=== PATIENT | male | born 1935 | race Caucasian/White ===

== ENCOUNTER 2019-08-12 04:40 | Observation (INO) ==
[2019-08-12] MEDS ORDERED: ONDANSETRON 4 MG/2 ML VIAL IV STA (05:14)
[2019-08-12] MEDS ORDERED: ASPIRIN 325 MG TABLET PO STA (05:14)
[2019-08-12] MEDS ORDERED: NITROGLYCERIN 2% OINT 1 INCH/GM PACK TOP STA (05:14)
[2019-08-12] MEDS ORDERED: MORPHINE 4 MG/1 ML VIAL IV STA (05:14)
[2019-08-12 05:21] LABS: Basophils # 0.1 10*3/uL (0.0-0.2); Basophils % 0.7 % (0.0-0.8); Eosinophils # 0.3 10*3/uL (0.0-0.87); Eosinophils % 4.2 % (0.00-10.9); Hematocrit 35.5 VOL% (42.0-52.0); Hemoglobin 11.6 GM/DL (14.0-18.0); Immature Granulocytes % 0.5 %; Immature Granulocytes Absolute 0.04 #; Lymphocytes # 2.1 10*3/uL (1.4-4.0); Lymphocytes % 26.7 % (21.2-54.2); Mean Corpuscular HGB Conc 32.7 GM/DL (32-36); Mean Corpuscular Volume 102.6 FL (87-102); Mean Platelet Volume 11.9 FL (9.6-12.0); Monocytes % 12.8 % (1.7-12.7); Neutrophils % 55.1 % (38.7-73.9); Platelet Count 243 T/CUMM (130-400); Red Blood Count 3.46 MC/CUMM (3.8-5.5); Red Cell Distribution Width 12.8 % (9.3-17.3); White Blood Count 7.7 T/CUMM (4-12)
[2019-08-12 05:25] LABS: Apearance,Urine CLEAR (Clear); Bacteria,Urine Occasional /HPF (Few); Bilirubin,Urine Negative (Negative); Blood, Urine Negative (Negative); Glucose,Urine (UA) Negative (Negative); Hyaline Casts,Urine 1 /LPF (0-3); Ketones,Urine Negative (Negative); Mucus,Urine Occasional /LPF (Occasional); Nitrite,Urine Negative (Negative); Protein,Urine Negative; RBC,Urine 3 /HPF (0-4); Squamous Epithelial Cell,Urine Occasional /HPF (0-10); Urine Color Straw (Yellow); Urine Specific Gravity 1.008 (1.001-1.035); Urine Urobilinogen < 2.0 EU/DL (0.2-1.0); WBC,Urine <1 /HPF (0-6)
[2019-08-12 05:49] LABS: INR 1.9
[2019-08-12 05:58] LABS: Albumin 3.1 G/DL (3.4-5.0); Bilirubin,Total 0.4 MG/DL (0.2-1.0); Calcium 8.4 MG/DL (8.5-10.1); Osmolality,Calculated 277.7 MOS/KG (273-304); Total Protein 6.5 G/DL (6.4-8.3)
[2019-08-12] MEDS ORDERED: MORPHINE 4 MG/1 ML VIAL IV PRN (06:35)
[2019-08-12] MEDS ORDERED: ONDANSETRON 4 MG/2 ML VIAL IV PRN (06:35)
[2019-08-12] MEDS ORDERED: DOCUSATE SODIUM 100 MG CAPSULE PO PRN (06:35)
[2019-08-12] MEDS ORDERED: ACETAMINOPHEN 325 MG TABLET PO PRN (06:35)
[2019-08-12 07:03] LABS: Risk Ratio 4.55
[2019-08-12] MEDS: ENOXAPARIN 40 MG/0.4 ML SYRINGE SUBCUT SCH (07:55)
[2019-08-12] MEDS: SODIUM CHLORIDE 0.9% 1,000 ML IV SCH (07:59)
[2019-08-12] MEDS ORDERED: NITROGLYCERIN SL 0.4 MG TABLET SL PRN (11:13)
[2019-08-12] MEDS ORDERED: CLORAZEPATE 7.5 MG TABLET PO SCH (11:30)
[2019-08-12] MEDS: MULTIVITAMIN (OCUVITE) TABLET PO SCH ×2 (13:05→21:15)
[2019-08-12] MEDS: FOLIC ACID 1 MG TABLET PO SCH (13:06)
[2019-08-12] MEDS: POTASSIUM CHLORIDE 10 MEQ TABLET PO SCH (13:06)
[2019-08-12] MEDS: MAGNESIUM OXIDE 400 MG TABLET PO SCH (13:06)
[2019-08-12] MEDS: PANTOPRAZOLE 40 MG TABLET PO SCH (13:06)
[2019-08-12] MEDS: THIAMINE 100 MG TABLET PO SCH (13:06)
[2019-08-12] MEDS ORDERED: WARFARIN 5 MG TABLET PO SCH (18:00)
[2019-08-12] MEDS ORDERED: TAMSULOSIN 0.4 MG CAPSULE PO SCH (21:00)
[2019-08-12] MEDS ORDERED: CLOPIDOGREL 75 MG TABLET PO SCH (21:00)
[2019-08-12] MEDS ORDERED: carvediloL 3.125 MG TABLET PO SCH (21:00)
[2019-08-12] MEDS ORDERED: carvediloL 6.25 MG TABLET PO SCH (21:00)
[2019-08-12] MEDS ORDERED: ACETAMINOPHEN 500 MG TABLET PO SCH (21:00)
[2019-08-12] MEDS: CLORAZEPATE 3.75 MG TABLET PO SCH (21:15)
[2019-08-13 05:28] LABS: Basophils # 0.1 10*3/uL (0.0-0.2); Basophils % 0.6 % (0.0-0.8); Eosinophils # 0.3 10*3/uL (0.0-0.87); Eosinophils % 3.5 % (0.00-10.9); Hematocrit 33.8 VOL% (42.0-52.0); Hemoglobin 10.9 GM/DL (14.0-18.0); Immature Granulocytes % 0.2 %; Immature Granulocytes Absolute 0.02 #; Lymphocytes # 2.7 10*3/uL (1.4-4.0); Lymphocytes % 33.5 % (21.2-54.2); Mean Corpuscular HGB Conc 32.2 GM/DL (32-36); Mean Corpuscular Volume 103.4 FL (87-102); Monocytes % 13.2 % (1.7-12.7); Platelet Count 208 T/CUMM (130-400); Red Blood Count 3.27 MC/CUMM (3.8-5.5); Red Cell Distribution Width 12.9 % (9.3-17.3); White Blood Count 8.1 T/CUMM (4-12)
[2019-08-13 06:08] LABS: Calcium 8.5 MG/DL (8.5-10.1); Osmolality,Calculated 278.5 MOS/KG (273-304)
[2019-08-13] MEDS: SODIUM CHLORIDE 0.9% 1,000 ML IV SCH (06:41)
[2019-08-13] MEDS: ENOXAPARIN 40 MG/0.4 ML SYRINGE SUBCUT SCH (06:43)
[2019-08-13 08:55] VITALS: BP 138/54
[2019-08-13] MEDS: FOLIC ACID 1 MG TABLET PO SCH (10:09)
[2019-08-13] MEDS: MULTIVITAMIN (OCUVITE) TABLET PO SCH (10:09)
[2019-08-13] MEDS: PANTOPRAZOLE 40 MG TABLET PO SCH (10:09)
[2019-08-13] MEDS: MAGNESIUM OXIDE 400 MG TABLET PO SCH (10:09)
[2019-08-13] MEDS: POTASSIUM CHLORIDE 10 MEQ TABLET PO SCH (10:09)
[2019-08-13] MEDS: THIAMINE 100 MG TABLET PO SCH (10:10)
[2019-08-13] MEDS: CLORAZEPATE 3.75 MG TABLET PO SCH (10:17)
== END 2019-08-13 11:10 | disposition home or self-care (01) ==
LOC: SUATTDRO → EDUNIT# → EDBD → N.EDINP 04:40 → N.ED 04:40 → N.EDINP 11:44 → N.2W 12:21
PROVIDERS: ADMIT Internal Medicine; ATTEND Internal Medicine